=== PATIENT | male | born 1975 | race Two or more races ===

== ENCOUNTER 2018-03-15 11:39 | Emergency (ER) | payer SELFPAY ==
[~2018-03-15] VITALS: Ht 175.3 cm; Wt 95.3 kg
[2018-03-15 13:43] VITALS: BP 111/74
[2018-03-15] MEDS ORDERED: KETOROLAC TROMETH 60MG/2ML VIAL IM ONE (14:30)
== END 2018-03-15 14:41 | disposition home or self-care (01) ==
LOC: ER 11:42
DX: S33.5XXA Sprain of ligaments of lumbar spine, initial encounter (principal); M79.18 Myalgia, other site; I10 Essential (primary) hypertension; F12.10 Cannabis abuse, uncomplicated; F15.10 Other stimulant abuse, uncomplicated; X50.1XXA Overexertion from prolonged static or awkward postures, initial encounter; Y93.01 Activity, walking, marching and hiking; Y92.89 Other specified places as the place of occurrence of the external cause; Y99.8 Other external cause status
CPT/HCPCS: 72100; 96372; 99283; J1885

== ENCOUNTER 2019-07-05 11:18 | Emergency (ER) | payer MEDICAID ==
[~2019-07-05] VITALS: Ht 175.3 cm; Wt 88.5 kg
[2019-07-05 11:58] VITALS: BP 117/78
[2019-07-05] MEDS ORDERED: KETOROLAC TROMETH 60MG/2ML VIAL IM ONE (12:15)
== END 2019-07-05 12:40 | disposition home or self-care (01) ==
LOC: ER 11:18
DX: S93.602A Unspecified sprain of left foot, initial encounter (principal); M54.41 Lumbago with sciatica, right side; L30.9 Dermatitis, unspecified; I10 Essential (primary) hypertension; X58.XXXA Exposure to other specified factors, initial encounter; Y93.89 Activity, other specified; Y92.89 Other specified places as the place of occurrence of the external cause; Y99.8 Other external cause status
CPT/HCPCS: 73630; 96372; 99283; J1885

== ENCOUNTER 2019-07-05 18:40 | Emergency (ER) | payer MEDICAID ==
[~2019-07-05] VITALS: Ht 175.3 cm; Wt 88.5 kg
[2019-07-05 19:44] LABS: Lymphocytes # (auto) 2.5 10 ^3/uL (0.4-5.4); Monocytes # (auto) 0.5 10 ^3/uL (0-1.3); Monocytes % (auto) 5.5 % (0.0-12.0)
[2019-07-05 19:48] LABS: Basophils # (auto) 0.1 10 ^3/uL (0-0.2); Basophils % (auto) 0.7 % (0.0-2.0); Eosinophils # (auto) 0.2 10 ^3/uL (0-0.8); Eosinophils % (auto) 2.4 % (0.0-7.0); Hematocrit 44.2 % (41.0-53.0); Hemoglobin 15.2 g/dL (13.5-17.5); Lymphocytes % (auto) 27.6 % (10.0-50.0); Mean Corpuscular Hemoglobin 30.7 pg (28.0-32.0); Mean Corpuscular Hgb Conc. 34.5 g/dL (32.0-36.0); Neutrophils # (auto) 5.8 10 ^3/uL (1.6-8.6); Neutrophils % (auto) 63.8 % (37.0-80.0); Platelet Count (auto) 275 10^3/uL (140-450); Red Blood Cells 4.96 10^6/uL (4.5-5.90)
[2019-07-05 20:06] LABS: BUN/Creatinine Ratio 15.3; Calcium 10.3 mg/dL (8.5-10.1); Potassium 4.1 mmol/L (3.5-5.1)
[2019-07-05 20:09] LABS: Bilirubin, Total 1.2 mg/dL (0.2-1.0); Total Protein 7.6 g/dL (6.4-8.2)
[2019-07-05] MEDS ORDERED: HYDROcodone-ACET 10/325MG TAB PO ONE (20:15)
[2019-07-05 20:30] VITALS: BP 123/58
== END 2019-07-05 20:40 | disposition home or self-care (01) ==
LOC: ER 18:40
DX: R10.12 Left upper quadrant pain (principal)
CPT/HCPCS: 36415; 74176; 80053; 83690; 85025

== ENCOUNTER 2022-01-17 04:58 | Emergency (ER) | payer MEDICAID ==
[~2022-01-17] VITALS: Ht 175.3 cm; Wt 85.3 kg
[2022-01-17 06:41] LABS: Basophils # (auto) 0 10 ^3/uL (0-0.2); Basophils % (auto) 0.2 % (0.0-2.0); Eosinophils # (auto) 0.1 10 ^3/uL (0-0.8); Eosinophils % (auto) 1.2 % (0.0-7.0); Hematocrit 48.4 % (41.0-53.0); Hemoglobin 16.4 g/dL (13.5-17.5); Lymphocytes # (auto) 1.3 10 ^3/uL (0.4-5.4); Mean Corpuscular Hemoglobin 30.5 pg (28.0-32.0); Mean Corpuscular Hgb Conc. 33.8 g/dL (32.0-36.0); Mean Corpuscular Volume 90.1 fL (80.0-100.0); Monocytes # (auto) 0.4 10 ^3/uL (0-1.3); Monocytes % (auto) 3.7 % (0.0-12.0); Neutrophils % (auto) 83.9 % (37.0-80.0); Nucleated Red Blood Cells % 0.2 %; Red Blood Cells 5.37 10^6/uL (4.5-5.90); Red Cell Distribution Width 13.4 % (11.8-14.3); White Blood Cell 11.9 10^3/uL (4.4-10.8)
[2022-01-17 06:43] LABS: Urine Bacteria NONE SEEN /hpf (None Seen); Urine Blood Negative /uL (Negative); Urine Specific Gravity 1.016 (1.001-1.035); Urine WBC 1 /hpf (0 - 3)
[2022-01-17 06:56] LABS: Albumin 4.1 g/dL (3.4-5.0); Potassium 4.4 mmol/L (3.5-5.1)
[2022-01-17 06:58] LABS: BUN/Creatinine Ratio 15.8; Bilirubin, Total 1.2 mg/dL (0.2-1.0); Total Protein 7.4 g/dL (6.4-8.2)
[2022-01-17] MEDS ORDERED: IOHEXOL 300 MG/ML 100ML BOTTLE IJ ONE (07:24)
[2022-01-17] MEDS ORDERED: KETOROLAC TROMETH 30 MG/ML 1ML VIAL IV ONE (09:45)
[2022-01-17] MEDS ORDERED: KETOROLAC TROMETH 60MG/2ML VIAL IV ONE (09:45)
[2022-01-17] MEDS ORDERED: METR500T PO ×2 (13:36→15:32)
[2022-01-17] MEDS ORDERED: CIPR-173 PO ×2 (13:36→15:32)
[2022-01-17] MEDS ORDERED: ONDA-155 PO ×2 (13:37→15:32)
[2022-01-17] MEDS ORDERED: DICY10CA PO ×2 (13:37→15:32)
[2022-01-17 13:43] VITALS: BP 125/75
== END 2022-01-17 13:52 | disposition home or self-care (01) ==
LOC: ER 05:02
DX: K57.92 Diverticulitis of intestine, part unspecified, without perforation or abscess without bleeding (principal)
CPT/HCPCS: 36415; 36600; 71046; 74177; 80053; 81001; 82805; 84484; 85025; 99285; J1885; Q9967

== ENCOUNTER 2023-04-28 08:05 | Emergency (ER) | payer MEDICAID ==
[~2023-04-28] VITALS: Ht 175.3 cm; Wt 93.9 kg
[~2023-04-28 08:05] MED LIST: CIPR-173 PO; DICY10CA PO; METR500T PO; ONDA-155 PO
[2023-04-28 08:48] LABS: Basophils # (auto) 0.1 10 ^3/uL (0-0.2); Basophils % (auto) 0.5 % (0.0-2.0); Eosinophils # (auto) 0.2 10 ^3/uL (0-0.8); Eosinophils % (auto) 2.2 % (0.0-7.0); Hematocrit 47.7 % (41.0-53.0); Lymphocytes # (auto) 2.2 10 ^3/uL (0.4-5.4); Lymphocytes % (auto) 20.1 % (10.0-50.0); Mean Corpuscular Hemoglobin 30.3 pg (28.0-32.0); Mean Corpuscular Hgb Conc. 33.6 g/dL (32.0-36.0); Mean Corpuscular Volume 90.2 fL (80.0-100.0); Monocytes # (auto) 0.7 10 ^3/uL (0-1.3); Monocytes % (auto) 6.4 % (0.0-12.0); Neutrophils # (auto) 7.9 10 ^3/uL (1.6-8.6); Neutrophils % (auto) 70.8 % (37.0-80.0); Nucleated Red Blood Cells % 0.1 %; Red Blood Cells 5.29 10^6/uL (4.5-5.90); Red Cell Distribution Width 13.4 % (11.8-14.3); White Blood Cell 11.1 10^3/uL (4.4-10.8)
[2023-04-28 08:54] LABS: Chloride 105 mmol/L (98-107); Sodium 139 mmol/L (136-145)
[2023-04-28 08:55] LABS: Anion Gap 6 (5-15); Calcium 9.7 mg/dL (8.5-10.1); Carbon Dioxide 28 mmol/L (20-30)
[2023-04-28 09:00] LABS: BUN/Creatinine Ratio 6.7 (10.0-20.0); Blood Urea Nitrogen 7 mg/dL (9-23); Glucose 84 mg/dL (74-106)
[2023-04-28 09:03] LABS: Urine Bacteria NONE SEEN /hpf (None Seen); Urine Blood Negative /uL (Negative); Urine Clarity Clear (Clear); Urine Color Colorless (Yellow); Urine Protein, UAD 1+ (Negative); Urine Specific Gravity 1.017 (1.001-1.035); Urine Sperm PRESENT /hpf (None Seen); Urine Urobilinogen Normal (Negative); Urine WBC 1 /hpf (0 - 3)
[2023-04-28] MEDS ORDERED: PANT40TA2 PO (09:36)
[2023-04-28] MEDS: LIDOCAINE VISCOUS 2% 15ML UD PO ONE (09:50)
[2023-04-28] MEDS: MAALOX PLUS or MAALOX 30 ML PO ONE (09:51)
[2023-04-28] MEDS: DONNATAL 5ml ORAL Elix (BELLADONNA ALK-PHENOBARB) PO ONE (09:51)
[2023-04-28 11:25] VITALS: BP 133/83; PULSE 59; RESP 17; TEMP 97.9; O2SAT 97
== END 2023-04-28 11:26 | disposition home or self-care (01) ==
LOC: ER 08:05
DX: K29.70 Gastritis, unspecified, without bleeding (principal); I10 Essential (primary) hypertension; Z79.2 Long term (current) use of antibiotics; Z79.899 Other long term (current) drug therapy
CPT/HCPCS: 36415; 80048; 81001; 83690; 85025